=== PATIENT | male | born 1980 | race African-American/Black ===

== ENCOUNTER 2022-03-27 09:22 | Emergency (ER) | payer MEDICAID ==
[~2022-03-27] VITALS: Ht 177.8 cm; Wt 80.0 kg
[2022-03-27 11:47] LABS: HEMATOCRIT. 38.7 % (42.0-52.0); HEMOGLOBIN. 13.1 g/dL (14.0-18.0); MEAN CORPUSCULAR HEMOGLOBIN 30.8 pg (28.0-32.0); MEAN CORPUSCULAR VOLUME 91.1 fL (80.0-94.0); MEAN PLATELET VOLUME 8.1 fl (7.4-10.4); PLATELET 249 x1000/uL (130-400); RED BLOOD CELL COUNT 4.24 mill/uL (4.7-6.1); RED CELL DISTRIBUTION WIDTH 12.1 % (11.6-14.6)
[2022-03-27 12:01] LABS: CHLORIDE 104 mEq/L (98-107)
[2022-03-27 12:04] LABS: ETHANOL BLOOD < 10 mg/dL
[2022-03-27 12:10] LABS: *AMPHETAMINES SCREEN URINE PRESUMTIVE POSITIVE (NEGATIVE); *BARBITURATES SCREEN URINE NEGATIVE (NEGATIVE); *BENZODIAZEPINES SCREEN URINE NEGATIVE (NEGATIVE); *COCAINE SCREEN URINE NEGATIVE (NEGATIVE); CANNABINOID URINE SCREEN PRESUMTIVE POSITIVE (NEGATIVE); METHADONE URINE SCREEN NEGATIVE (NEGATIVE); OPIATES URINE SCREEN NEGATIVE (NEGATIVE); PHENCYCLIDINE URINE SCREEN NEGATIVE (NEGATIVE)
[2022-03-27 12:34] LABS: PLATELET ESTIMATE NORMAL
[2022-03-27 13:54] VITALS: BP 102/62
== END 2022-03-27 16:47 | disposition home or self-care (01) ==
LOC: ER 09:22
DX: E83.51 Hypocalcemia (principal); F15.10 Other stimulant abuse, uncomplicated; F12.10 Cannabis abuse, uncomplicated
CPT/HCPCS: 36415; 80048; 80305; 80320; 85025; 99284; G0480

== ENCOUNTER 2022-03-27 19:16 | Emergency (ER) | payer MEDICAID ==
[~2022-03-27] VITALS: Ht 170.2 cm; Wt 76.0 kg
[2022-03-27 20:07] VITALS: BP 123/72
== END 2022-03-28 01:45 | disposition home or self-care (01) ==
LOC: ER 19:16
DX: J06.9 Acute upper respiratory infection, unspecified (principal)
CPT/HCPCS: 99281